=== PATIENT | female | born 1975 | race Two or more races ===

== ENCOUNTER 2025-06-21 19:14 | Inpatient (IN) | payer OTHER ==
[~2025-06-21] VITALS: Ht 162.6 cm; Wt 103.7 kg
[2025-06-21 20:51] LABS: PLATELET COUNT (AUTO) 282 K/uL (150-450); RED BLOOD CELL COUNT(AUTO) 3.86 MIL/uL (4.00-5.20); RED CELL DISTRIBUTION WIDTH 14.2 % (11.5-14.5); WHITE BLOOD COUNT (AUTO) 5.2 K/uL (4.5-11.0)
[2025-06-21 20:55] LABS: CALCIUM, TOTAL 8.5 mg/dL (8.8-10.5); CREATININE 0.82 mg/dL (0.60-1.30); GLOMERULAR FILTR. RATE CALC > 60 mL/min (>60); GLUCOSE,RANDOM 107 mg/dL (70-110); SODIUM SERUM 141 mmol/L (136-145); UREA NITROGEN, BLOOD 22 mg/dL (7-18)
[2025-06-21] MEDS: SODIUM CHLORIDE 0.9% 1,000 ML IV ONE ×2 (21:00→22:39)
[2025-06-21 21:01] LABS: ASPARTATE AMINOTRANSFERASE 30 U/L (15-37); TOTAL PROTEIN, SERUM 7.3 g/dL (6.4-8.2)
[2025-06-21 21:09] LABS: ALCOHOL, BLOOD (SERUM) < 3 mg/dL (0-10)
[2025-06-21] MEDS: MAGNESIUM SULFATE 2 GM/WATER 50 ML IV ONE (21:15)
[2025-06-21] MEDS ORDERED: LEVE-71 PO (21:37)
[2025-06-21] MEDS ORDERED: ATEN-73 PO (21:37)
[2025-06-21] MEDS ORDERED: FERR325T27 PO (21:37)
[2025-06-21] MEDS ORDERED: MIRT-149 PO (21:58)
[2025-06-21] MEDS ORDERED: PHEN50TA13 PO (21:58)
[2025-06-21] MEDS ORDERED: LEVO25TA9 PO (21:58)
[2025-06-21] MEDS ORDERED: ONDANSETRON HCL 4 MG/2 ML VIAL IVP PRN (22:15)
[2025-06-22 01:45] VITALS: BP 144/88; PULSE 85; RESP 16; TEMP 98.5; O2SAT 99
[2025-06-22] MEDS: ACETAMINOPHEN 325 MG TABLET PO PRN (03:25)
[2025-06-22 05:00] VITALS: BP 140/93; PULSE 83; RESP 17; TEMP 98.2; O2SAT 97
[2025-06-22 08:17] VITALS: BP 141/106; PULSE 83; RESP 19; TEMP 97.5; O2SAT 97
[2025-06-22] MEDS: FAMOTIDINE 20 MG TABLET PO SCH (09:00)
[2025-06-22] MEDS: DOCUSATE SODIUM 100 MG CAPSULE PO SCH (09:00)
[2025-06-22 11:59] VITALS: BP 133/93; PULSE 71; RESP 17; TEMP 98.1; O2SAT 98
[2025-06-22 15:50] LABS: APPEARANCE,URINE CLEAR (CLEAR); GLUCOSE, URINE (UA) NEGATIVE (NEGATIVE); LEUKOCYTE ESTERASE ,URINE NEGATIVE (NEGATIVE); NITRATE,URINE NEGATIVE (NEGATIVE); OCCULT BLOOD,URINE NEGATIVE (NEGATIVE); PH,URINE DRUG SCREEN 7.0 (5.0-8.0); SPECIFIC GRAVITIY, URINE 1.009 (1.003-1.030)
[2025-06-22 15:56] LABS: ALCOHOL, URINE DRUG SCREEN NEGATIVE (NEGATIVE); AMPHET/METH SCREEN,URINE NEGATIVE (NEGATIVE); BARBITURATE SCREEN, URINE NEGATIVE (NEGATIVE); CANNABINOID SCREEN,URINE NEGATIVE (NEGATIVE); COCAINE SCREEN,URINE NEGATIVE (NEGATIVE); METHADONE SCREEN, URINE NEGATIVE (NEGATIVE)
[2025-06-22] MEDS: BENZONATATE 100 MG CAPSULE PO PRN (16:27)
[2025-06-22 16:52] VITALS: BP 135/78; PULSE 60; RESP 17; TEMP 98.4; O2SAT 98
[2025-06-22 18:36] LABS: INFLUENZA A-RTPCR,COMBO NEGATIVE (NEGATIVE); INFLUENZA B-RTPCR,COMBO NEGATIVE (NEGATIVE); RESPIRATORY SYNCYTIAL VRS-PCR NEGATIVE (NEGATIVE); SARS COVID19 RTPCR, COMBO NEGATIVE (NEGATIVE)
[2025-06-22 21:07] VITALS: BP 106/67; PULSE 82; RESP 16; TEMP 98.6; O2SAT 95
[2025-06-23] VITALS (7 sets, daily range): BP systolic 93–137; BP diastolic 54–72; PULSE 77–81; RESP 17–19; TEMP 97.9–98.4; O2SAT 96–100
[2025-06-24 03:37] VITALS: BP 106/80; PULSE 73; RESP 17; TEMP 97.5; O2SAT 99
[2025-06-24 08:09] VITALS: BP 115/78; PULSE 77; RESP 18; TEMP 97.7; O2SAT 100
[2025-06-24] MEDS ORDERED: PHEN100C74 PO (13:12)
[2025-06-24] MEDS: GuaiFENesin/D-METHORPHAN [SUGAR-FREE] 200-20MG/10 ML SYRUP UDCUP PO PRN (13:30)
[2025-06-24 19:24] VITALS: BP 95/62; PULSE 84; RESP 18; TEMP 98.1; O2SAT 96
[2025-06-25] VITALS (7 sets, daily range): BP systolic 105–127; BP diastolic 60–100; PULSE 79–88; RESP 18–20; TEMP 98.1–98.4; O2SAT 97–100
[2025-06-25] MEDS: LORazepam 2 MG/ML VIAL IVP PRN (19:14)
[2025-06-25 19:41] LABS: GLUCOMETER DEV NAME(LOC) 6N.2C; GLUCOSE,POINT OF CARE 102 MG/DL (70-110)
[2025-06-26 01:00] LABS: PLATELET COUNT (AUTO) 233 K/uL (150-450); RED BLOOD CELL COUNT(AUTO) 3.55 MIL/uL (4.00-5.20); RED CELL DISTRIBUTION WIDTH 13.9 % (11.5-14.5); WHITE BLOOD COUNT (AUTO) 4.9 K/uL (4.5-11.0)
[2025-06-26 01:14] LABS: CALCIUM, TOTAL 8.2 mg/dL (8.8-10.5); CREATININE 0.79 mg/dL (0.60-1.30); GLOMERULAR FILTR. RATE CALC > 60 mL/min (>60); GLUCOSE,RANDOM 110 mg/dL (70-110); SODIUM SERUM 141 mmol/L (136-145); UREA NITROGEN, BLOOD 21 mg/dL (7-18)
[2025-06-26 01:19] LABS: ASPARTATE AMINOTRANSFERASE 35 U/L (15-37); TOTAL PROTEIN, SERUM 6.3 g/dL (6.4-8.2)
[2025-06-26 06:07] VITALS: BP 100/66; PULSE 81; RESP 18; TEMP 97.7; O2SAT 97
[2025-06-26 07:05] VITALS: BP 111/78; PULSE 81; RESP 20; TEMP 97.2; O2SAT 98
[2025-06-26] MEDS: *CLINICAL-LEVOFLOXACIN IVPB DOSING CLINICAL ONE (10:40)
[2025-06-26] MEDS ORDERED: SODIUM CHLORIDE 0.9% 500 ML IV ONE (12:05)
[2025-06-26] MEDS: LEVOFLOXACIN 500 MG/D5% WATER 100 ML IV SCH (12:18)
[2025-06-26 18:17] VITALS: BP 109/83; PULSE 83; RESP 18; O2SAT 100
[2025-06-26 19:23] VITALS: BP 99/64; PULSE 80; RESP 18; TEMP 98.1; O2SAT 100
[2025-06-26 20:15] VITALS: BP 133/79; PULSE 83; RESP 18; O2SAT 100
[2025-06-26] MEDS: LevETIRAcetam 1,500 MG in DEXTROSE 5%-WATER 100 ML IV SCH (21:37)
[2025-06-27] VITALS (7 sets, daily range): BP systolic 98–117; BP diastolic 59–85; PULSE 73–89; RESP 17–20; TEMP 97.7–98.6; O2SAT 97–100
[2025-06-27 06:25] LABS: PLATELET COUNT (AUTO) 234 K/uL (150-450); RED BLOOD CELL COUNT(AUTO) 3.77 MIL/uL (4.00-5.20); RED CELL DISTRIBUTION WIDTH 13.7 % (11.5-14.5); WHITE BLOOD COUNT (AUTO) 4.2 K/uL (4.5-11.0)
[2025-06-27 07:20] LABS: ASPARTATE AMINOTRANSFERASE 43 U/L (15-37); CALCIUM, TOTAL 8.4 mg/dL (8.8-10.5); CREATININE 0.84 mg/dL (0.60-1.30); GLOMERULAR FILTR. RATE CALC > 60 mL/min (>60); GLUCOSE,RANDOM 80 mg/dL (70-110); SODIUM SERUM 141 mmol/L (136-145); TOTAL PROTEIN, SERUM 6.4 g/dL (6.4-8.2); UREA NITROGEN, BLOOD 24 mg/dL (7-18)
[2025-06-27] MEDS ORDERED: 0.9% SODIUM CHLORIDE 5 ML NEB SOLUTION NEB ONE (17:14)
[2025-06-27] MEDS: ALBUTEROL SULFATE 2.5 MG/0.5 ML NEB SOLUTION NEB PRN (17:16)
[2025-06-27] MEDS: HEPARIN SODIUM,PORCINE 5,000 UNITS/ML VIAL SQ SCH (21:18)
[2025-06-28] VITALS (8 sets, daily range): BP systolic 94–115; BP diastolic 51–69; PULSE 72–80; RESP 17–18; TEMP 97.5–98.5; O2SAT 95–100
[2025-06-28] MEDS ORDERED: 0.9% SODIUM CHLORIDE 5 ML NEB SOLUTION NEB ONE (01:35)
[2025-06-28] MEDS: PHENYTOIN SODIUM 100 MG ER CAPSULE PO SCH (09:22)
[2025-06-28] MEDS: LEVOFLOXACIN 750 MG/D5% WATER 150 ML IV SCH (13:49)
[2025-06-29 05:32] VITALS: BP 111/74; PULSE 77; RESP 18; TEMP 97.5; O2SAT 98
[2025-06-29 08:12] VITALS: BP 118/74; PULSE 78; RESP 18; TEMP 97.6; O2SAT 98
[2025-06-29 09:36] VITALS: BP 118/76; PULSE 76; RESP 18; TEMP 98.2; O2SAT 98
[2025-06-29] MEDS ORDERED: DOCU-385 PO (10:25)
[2025-06-29] MEDS ORDERED: FAMO20 PO (10:26)
[2025-06-29] MEDS ORDERED: HYDR-5256 PO (10:26)
[2025-06-29] MEDS ORDERED: ACET-2247 PO (10:37)
[2025-06-29] MEDS ORDERED: LEVO750T68 PO (10:39)
[2025-06-29] MEDS: PHENYTOIN SODIUM 100 MG ER CAPSULE PO ONE (10:55)
[2025-06-29 11:10] VITALS: BP 113/72; PULSE 74; RESP 18; TEMP 98.3; O2SAT 98
[2025-06-29] MEDS ORDERED: PHENYTOIN SODIUM 100 MG ER CAPSULE PO ONE (12:00)
== END 2025-06-29 13:10 | DRG 917 ==
LOC: EMS 19:14 → EDH 22:09 → 5N 06-22 01:15 → 6N 06-23 17:03 → 5N 06-26 21:24 → 6N 06-28 21:12
PROVIDERS: ADMIT Internal Medicine; ATTEND Internal Medicine
PROC: GZ56ZZZ Individual Psychotherapy, Supportive (ICD-10-PCS; principal; 2025-06-22)
PROC: 4A00X4Z Measurement of Central Nervous Electrical Activity, External Approach (ICD-10-PCS; 2025-06-27)
DX: T43.022A Poisoning by tetracyclic antidepressants, intentional self-harm, initial encounter (principal); J18.9 Pneumonia, unspecified organism; F33.1 Major depressive disorder, recurrent, moderate; E44.0 Moderate protein-calorie malnutrition; Z20.822 Contact with and (suspected) exposure to COVID-19; E66.9 Obesity, unspecified; I10 Essential (primary) hypertension; G40.909 Epilepsy, unspecified, not intractable, without status epilepticus; J45.909 Unspecified asthma, uncomplicated; G43.909 Migraine, unspecified, not intractable, without status migrainosus; F79 Unspecified intellectual disabilities; T42.0X5A Adverse effect of hydantoin derivatives, initial encounter; R91.8 Other nonspecific abnormal finding of lung field; Y92.89 Other specified places as the place of occurrence of the external cause; Z68.39 Body mass index [BMI] 39.0-39.9, adult
CPT/HCPCS: 70450; 71045; 71250; 80048; 80053; 80076; 80185; 80307; 81003; 82962; 83735; 84703; 85025; 87637; 93005; 94640; 95816; 99291; G0378; G0480; G0481; J0712; J1644; J1956; J2060; J3475; J7030; J7040; J7060; 36415-L1; 36415-TC; J7613